=== PATIENT | female | born 1945 | race Caucasian/White ===

== ENCOUNTER 2016-11-12 12:31 | Emergency (ER) | payer OTHER ==
[~2016-11-12] VITALS: Ht 160 cm; Wt 126.5 kg
[~2016-11-12 12:31] MED LIST: AMIODARONE HCL200 MG PO; BENICAR20 MG PO; CARDIZEM CD240 MG PO; CARDIZEM120 MG PO; CELEBREX200 MG PO; CORDARONE200 MG PO; COUMADIN,JANTOVE2 MG PO; COUMADIN2 MG PO; COZAAR50 MG PO; Cardizem CD,Cartia X PO; Cordarone, Pacerone PO; Coumadin Daily Dose PO; Coumadin,Jantoven PO; Cozaar PO; DILTIAZEM 24HR240 MG PO; DOCUSATE SODIU100 MG PO; FERROUS SULFAT324 M1 PO; FLUOXETINE HCL10 MG PO; FUROSEMIDE20 MG PO; GLUCOPHAGE1000 M1 PO; GLUCOPHAGE1000 MG PO; Glucophage PO; HYDROCHLOROTHIA25 MG PO; HYDROCHLOROTHIA50 MG PO; HYDROCODON-ACE1 EAC7 PO; Hydrodiuril,Oretic,E PO; IMODIUM MS REL1 EACH PO; KEFLEX500 MG PO; LASIX20 MG PO; LOPRESSOR100 M1 PO; LOPRESSOR25 MG PO; LOSARTAN POTASS50 MG PO; LOVENOX40 MG/0.4 SC; METOPROLOL PO; PERCOCET 5/31 TABLET PO; PRAVACHOL40 M1 PO; PRAVACHOL40 MG PO; PRAVASTATIN; PROZAC10 M1 PO; PROZAC20 MG PO; PROzac PO; Percocet 5/325,Endoc PO; Pravachol PO; TAZTIA XT180 M1 PO; TOPROL XL100 MG PO; TYLENOL WITH C1 EACH PO; Toprol XL PO; Tylenol Extra Streng PO; VANCOMYCIN HCL125 MG PO; WARFARIN SODIUM2 MG PO
[2016-11-12 13:06] LABS: EOSINOPHIL (%) 1.6 % (0-5); EOSINOPHIL COUNT 0.2 K/uL (0-0.3); HEMATOCRIT 38.1 % (36.0-46.0); IMMATURE GRANULOCYTE (%) 0.5 % (0.0-0.7); IMMATURE GRANULOCYTE COUNT 0.5 K/uL; LYMPHOCYTE COUNT 1.6 K/uL (1.0-2.8); MCH 27.1 PG (29.0-34.0); MCHC 31.8 G/DL (30.0-36.0); MCV 85.2 FL (83-99); MEAN PLAT.VOLUME 9.1 uM^3 (9.5-12.4); MONOCYTE (%) 7.9 % (3-12); MONOCYTE COUNT 0.8 K/uL (0-0.8); NEUTROPHIL (%) 73.4 % (45-76); NEUTROPHIL COUNT 7.1 K/uL (1.8-6.4); PLATELET COUNT 312 K/uL (156-360); RBC DIS.WIDTH-CV 14.8 % (11.8-14.6); RBC DIS.WIDTH-SD 45.1 % (39-53); RED BLOOD COUNT 4.47 M/uL (3.80-5.20); WHITE BLOOD COUNT 9.6 K/uL (4.1-10.2)
[2016-11-12 13:19] LABS: PTT 52.8 (25-32)
[2016-11-12 13:20] LABS: CHLORIDE 103 mEq/L (99-109); POTASSIUM 5.5 mEq/L (3.7-5.4); SODIUM 141 mEq/L (136-147)
[2016-11-12 13:21] LABS: GLUCOSE 120 mg/dL (70-99)
[2016-11-12 13:23] LABS: ANION GAP 10 MEQ/L (2-14)
[2016-11-12 13:25] LABS: GFR ESTIMATE (CALCULATED) > 59 mL/min/
[2016-11-12 13:26] LABS: UREA NITROGEN (BUN) 13 mg/dL (9-23)
[2016-11-12 13:27] LABS: PROTHROMBIN TIME 64.4 (9.2-11.2)
[2016-11-12 13:29] LABS: TROP-I INTERPRETATION NEGATIVE; TROPONIN-I < 0.01 ng/mL (0.0-0.30)
[2016-11-12 14:13] VITALS: BP 153/82
== END 2016-11-12 14:14 | disposition home or self-care (01) ==
LOC: EME 12:31
PROVIDERS: Emergency Medicine
DX: I48.91 Unspecified atrial fibrillation (principal); E11.9 Type 2 diabetes mellitus without complications; E78.5 Hyperlipidemia, unspecified; Z86.000 Personal history of in-situ neoplasm of breast; Z79.01 Long term (current) use of anticoagulants; Z96.643 Presence of artificial hip joint, bilateral; Z91.040 Latex allergy status
CPT/HCPCS: 71010; 80048; 84484; 85025; 85610; 85730; 93005; 99281; 99284

== ENCOUNTER 2017-02-14 11:38 | Emergency (ER) | payer OTHER ==
[~2017-02-14] VITALS: Ht 160 cm; Wt 117.1 kg
[2017-02-14 12:14] LABS: EOSINOPHIL (%) 1.4 % (0-5); EOSINOPHIL COUNT 0.1 K/uL (0-0.3); HEMATOCRIT 39.9 % (36.0-46.0); IMMATURE GRANULOCYTE (%) 0.7 % (0.0-0.7); IMMATURE GRANULOCYTE COUNT 0.1 K/uL; LYMPHOCYTE COUNT 1.5 K/uL (1.0-2.8); MCHC 30.3 G/DL (30.0-36.0); MCV 85.8 FL (83-99); MEAN PLAT.VOLUME 9.4 uM^3 (9.5-12.4); MONOCYTE COUNT 0.7 K/uL (0-0.8); NEUTROPHIL (%) 67.7 % (45-76); PLATELET COUNT 330 K/uL (156-360); RBC DIS.WIDTH-CV 14.6 % (11.8-14.6); RBC DIS.WIDTH-SD 45.6 % (39-53); RED BLOOD COUNT 4.65 M/uL (3.80-5.20); WHITE BLOOD COUNT 7.4 K/uL (4.1-10.2)
[2017-02-14] MEDS ORDERED: AMLODIPINE BESYL5 MG PO (12:17)
[2017-02-14 12:39] LABS: TROP-I INTERPRETATION NEGATIVE; TROPONIN-I 0.01 ng/mL (0.0-0.30)
[2017-02-14 12:48] LABS: INTER. NORMALIZED RATIO 2.7; PROTHROMBIN TIME 28.1 (9.2-11.2)
[2017-02-14 12:54] LABS: CHLORIDE 101 mEq/L (99-109); POTASSIUM 3.8 mEq/L (3.7-5.4); SODIUM 140 mEq/L (136-147)
[2017-02-14 12:56] LABS: GLUCOSE 129 mg/dL (70-99)
[2017-02-14 12:57] LABS: ANION GAP 12 MEQ/L (2-14)
[2017-02-14 13:00] LABS: GFR ESTIMATE (CALCULATED) 58 mL/min/; UREA NITROGEN (BUN) 18 mg/dL (9-23)
[2017-02-14 14:27] VITALS: BP 131/73
== END 2017-02-14 14:37 | disposition home or self-care (01) ==
LOC: EME 11:38
PROVIDERS: Emergency Medicine
DX: I48.0 Paroxysmal atrial fibrillation (principal); R00.2 Palpitations; E11.9 Type 2 diabetes mellitus without complications; Z79.84 Long term (current) use of oral hypoglycemic drugs; Z79.01 Long term (current) use of anticoagulants; Z96.641 Presence of right artificial hip joint; Z96.642 Presence of left artificial hip joint; Z85.3 Personal history of malignant neoplasm of breast; E89.0 Postprocedural hypothyroidism; Z91.040 Latex allergy status; Z91.048 Other nonmedicinal substance allergy status; I10 Essential (primary) hypertension
CPT/HCPCS: 80048; 84484; 85025; 85610; 93005; 99281; 99285

== ENCOUNTER 2017-07-14 09:01 | Day surgery (SDC) | payer OTHER ==
[~2017-07-14] VITALS: Ht 160 cm; Wt 115.0 kg
[~2017-07-14 09:01] MED LIST changes: +AMLODIPINE BESYL5 MG PO; +COUMADIN4 MG PO; +METOPROLOL SUCC25 MG PO; +METOPROLOL SUCC50 MG PO; +VALSARTAN320 MG PO
[2017-07-14 09:45] LABS: POINT-OF-CARE METER ID UU13113696
[2017-07-14 10:45] LABS: POINT-OF-CARE METER ID UU13113819
== END 2017-07-14 11:54 | disposition home or self-care (01) ==
LOC: CATH 09:01
PROVIDERS: Internal Medicine Cardiovascular Disease
PROC: 5A2204Z Restoration of Cardiac Rhythm, Single (ICD-10-PCS; principal; 2017-07-14)
DX: I48.0 Paroxysmal atrial fibrillation (principal); I10 Essential (primary) hypertension; E11.65 Type 2 diabetes mellitus with hyperglycemia; E78.2 Mixed hyperlipidemia; E03.9 Hypothyroidism, unspecified; E66.9 Obesity, unspecified; Z68.42 Body mass index [BMI] 45.0-49.9, adult; Z82.49 Family history of ischemic heart disease and other diseases of the circulatory system; Z85.3 Personal history of malignant neoplasm of breast; Z79.01 Long term (current) use of anticoagulants; Z79.84 Long term (current) use of oral hypoglycemic drugs
CPT/HCPCS: 82948; 93005; J0330

== ENCOUNTER 2018-01-05 20:23 | Inpatient (IN) | payer OTHER ==
[~2018-01-05] VITALS: Ht 160 cm; Wt 115.8 kg
[2018-01-05 20:55] LABS: BASOPHIL (%) 0.3 % (0-1); EOSINOPHIL (%) 0.6 % (0-5); EOSINOPHIL COUNT 0.1 K/uL (0-0.3); HEMATOCRIT 35.3 % (36.0-46.0); HEMOGLOBIN 11.2 G/DL (11.9-15.5); IMMATURE GRANULOCYTE (%) 0.5 % (0.0-0.7); LYMPHOCYTE (%) 14.1 % (15-42); LYMPHOCYTE COUNT 1.4 K/uL (1.0-2.8); MCH 27.3 PG (29.0-34.0); MCHC 31.7 G/DL (30.0-36.0); MCV 85.9 FL (83-99); MONOCYTE (%) 8.4 % (3-12); MONOCYTE COUNT 0.9 K/uL (0-0.8); NEUTROPHIL (%) 76.1 % (45-76); NEUTROPHIL COUNT 7.8 K/uL (1.8-6.4); PLATELET COUNT 308 K/uL (156-360); RBC DIS.WIDTH-CV 14.9 % (11.8-14.6); RBC DIS.WIDTH-SD 46.9 % (39-53); RED BLOOD COUNT 4.11 M/uL (3.80-5.20); WHITE BLOOD COUNT 10.2 K/uL (4.1-10.2)
[2018-01-05 21:24] LABS: CHLORIDE 100 mEq/L (99-109); POTASSIUM 3.8 mEq/L (3.7-5.4); SODIUM 140 mEq/L (136-147)
[2018-01-05 21:25] LABS: GLUCOSE 138 mg/dL (70-99)
[2018-01-05 21:29] LABS: CREATININE 1.1 mg/dL (0.6-1.3); GFR ESTIMATE (CALCULATED) 52 mL/min/
[2018-01-05 21:30] LABS: UREA NITROGEN (BUN) 30 mg/dL (9-23)
[2018-01-05] MEDS ORDERED: PRADAXA150 MG PO (23:07)
[2018-01-06 01:39] VITALS: BP 147/65
[2018-01-06 04:45] VITALS: BP 150/67
[2018-01-06 09:00] VITALS: BP 145/67
[2018-01-06 11:50] VITALS: BP 159/70
[2018-01-06 17:26] VITALS: BP 137/60
[2018-01-06 19:22] VITALS: BP 119/59
[2018-01-07 00:10] VITALS: BP 135/62
[2018-01-07 06:59] LABS: BASOPHIL (%) 0.4 % (0-1); BASOPHIL COUNT 0.1 K/uL (0-0.1); EOSINOPHIL (%) 0.7 % (0-5); EOSINOPHIL COUNT 0.1 K/uL (0-0.3); HEMATOCRIT 34.3 % (36.0-46.0); HEMOGLOBIN 10.6 G/DL (11.9-15.5); IMMATURE GRANULOCYTE (%) 0.3 % (0.0-0.7); LYMPHOCYTE (%) 6.4 % (15-42); LYMPHOCYTE COUNT 0.8 K/uL (1.0-2.8); MCH 26.8 PG (29.0-34.0); MCHC 30.9 G/DL (30.0-36.0); MCV 86.6 FL (83-99); MONOCYTE (%) 7.1 % (3-12); MONOCYTE COUNT 0.8 K/uL (0-0.8); NEUTROPHIL (%) 85.1 % (45-76); PLATELET COUNT 291 K/uL (156-360); RBC DIS.WIDTH-CV 15.1 % (11.8-14.6); RED BLOOD COUNT 3.96 M/uL (3.80-5.20); WHITE BLOOD COUNT 11.8 K/uL (4.1-10.2)
[2018-01-07 07:28] LABS: CHLORIDE 102 MEQ/L (99-109); CREATININE 0.8 MG/DL (0.6-1.3); GFR ESTIMATE (CALCULATED) > 59 mL/min/; GLUCOSE 161 mg/dL (70-99); MAGNESIUM 1.9 mg/dl (1.3-2.7); SODIUM 139 MEQ/L (136-147); UREA NITROGEN (BUN) 18 mg/dL (9-23)
[2018-01-07 07:56] VITALS: BP 141/64
[2018-01-07 17:15] VITALS: BP 136/67
[2018-01-07 19:15] VITALS: BP 117/57
[2018-01-07 23:55] VITALS: BP 129/62
[2018-01-08 08:33] VITALS: BP 155/76
[2018-01-08 11:59] VITALS: BP 163/57
[2018-01-08 16:15] VITALS: BP 157/67
[2018-01-08 19:36] VITALS: BP 114/56
[2018-01-09 00:36] VITALS: BP 131/61
[2018-01-09 07:52] VITALS: BP 149/70
[2018-01-09 09:34] LABS: HEMATOCRIT 35.5 % (36.0-46.0); HEMOGLOBIN 10.9 G/DL (11.9-15.5); MCHC 30.7 G/DL (30.0-36.0); MCV 87.9 FL (83-99); PLATELET COUNT 322 K/uL (156-360); RBC DIS.WIDTH-CV 15.2 % (11.8-14.6); RBC DIS.WIDTH-SD 48.8 % (39-53); RED BLOOD COUNT 4.04 M/uL (3.80-5.20); WHITE BLOOD COUNT 9.6 K/uL (4.1-10.2)
[2018-01-09 10:07] LABS: CHLORIDE 102 MEQ/L (99-109); CREATININE 0.8 MG/DL (0.6-1.3); GFR ESTIMATE (CALCULATED) > 59 mL/min/; GLUCOSE 166 mg/dL (70-99); SODIUM 140 MEQ/L (136-147); UREA NITROGEN (BUN) 14 mg/dL (9-23)
[2018-01-09 12:02] VITALS: BP 147/75
[2018-01-09 15:58] VITALS: BP 129/60
[2018-01-09 19:05] VITALS: BP 136/62
[2018-01-10 00:34] VITALS: BP 125/65
[2018-01-10 05:38] LABS: BASOPHIL (%) 0.6 % (0-1); BASOPHIL COUNT 0.1 K/uL (0-0.1); EOSINOPHIL (%) 2.3 % (0-5); EOSINOPHIL COUNT 0.2 K/uL (0-0.3); HEMATOCRIT 33.5 % (36.0-46.0); HEMOGLOBIN 10.4 G/DL (11.9-15.5); IMMATURE GRANULOCYTE (%) 0.5 % (0.0-0.7); LYMPHOCYTE (%) 14.7 % (15-42); LYMPHOCYTE COUNT 1.3 K/uL (1.0-2.8); MONOCYTE (%) 9.5 % (3-12); MONOCYTE COUNT 0.8 K/uL (0-0.8); NEUTROPHIL (%) 72.4 % (45-76); NEUTROPHIL COUNT 6.3 K/uL (1.8-6.4); PLATELET COUNT 305 K/uL (156-360); RBC DIS.WIDTH-CV 15.2 % (11.8-14.6); RED BLOOD COUNT 3.85 M/uL (3.80-5.20); WHITE BLOOD COUNT 8.6 K/uL (4.1-10.2)
[2018-01-10 05:56] LABS: CHLORIDE 103 MEQ/L (99-109); CREATININE 0.8 MG/DL (0.6-1.3); GFR ESTIMATE (CALCULATED) > 59 mL/min/; GLUCOSE 131 mg/dL (70-99); POTASSIUM 4.1 MEQ/L (3.7-5.4); SODIUM 140 MEQ/L (136-147); UREA NITROGEN (BUN) 14 mg/dL (9-23)
[2018-01-10 08:02] VITALS: BP 131/98
[2018-01-10] MEDS ORDERED: KEFLEX500 MG PO (08:55)
[2018-01-10] MEDS ORDERED: BACTRIM,SEPT1 TABLET PO (08:55)
== END 2018-01-10 12:30 | disposition home health service (06) | DRG 603 ==
LOC: EME 20:23 → EDOF 01-06 00:08 → ENRESERV 01-06 00:09 → 5WEST 01-06 01:31
PROVIDERS: Emergency Medicine; Hospitalist
DX: L03.115 Cellulitis of right lower limb (principal); M86.9 Osteomyelitis, unspecified; Z68.42 Body mass index [BMI] 45.0-49.9, adult; E78.00 Pure hypercholesterolemia, unspecified; Z60.2 Problems related to living alone; E11.40 Type 2 diabetes mellitus with diabetic neuropathy, unspecified; E11.610 Type 2 diabetes mellitus with diabetic neuropathic arthropathy; I10 Essential (primary) hypertension; I48.2 Chronic atrial fibrillation; M89.771 Major osseous defect, right ankle and foot; Z74.09 Other reduced mobility; E66.9 Obesity, unspecified; Z96.651 Presence of right artificial knee joint; Z96.1 Presence of intraocular lens; Z96.643 Presence of artificial hip joint, bilateral; Z86.14 Personal history of Methicillin resistant Staphylococcus aureus infection; Z74.01 Bed confinement status; Z79.01 Long term (current) use of anticoagulants; Z79.84 Long term (current) use of oral hypoglycemic drugs; Z85.3 Personal history of malignant neoplasm of breast; Z90.710 Acquired absence of both cervix and uterus; Z98.41 Cataract extraction status, right eye; Z91.040 Latex allergy status; Z91.048 Other nonmedicinal substance allergy status; Z72.3 Lack of physical exercise; Z80.1 Family history of malignant neoplasm of trachea, bronchus and lung; Z80.8 Family history of malignant neoplasm of other organs or systems; Z82.3 Family history of stroke
CPT/HCPCS: 73610; 73630; 73720; 80048; 80202; 82948; 83605; 83735; 85025; 85027; 85652; 86140; 87040; 87641; 93971; 99281; 99285; G0378; G8978 GP CI; G8979 GP CH; J0690; J0692; J1815; J2543; J3370; J7030; J7050

== ENCOUNTER 2018-05-04 07:14 | Inpatient (IN) | payer OTHER ==
[~2018-05-04] VITALS: Ht 160 cm; Wt 120.3 kg
[~2018-05-04 07:14] MED LIST changes: +BACTRIM,SEPT1 TABLET PO; +GLUCOPHAGE500 MG PO; +PRADAXA150 MG PO
[2018-05-04 07:56] LABS: HEMATOCRIT 33.9 % (36.0-46.0); HEMOGLOBIN 10.7 G/DL (11.9-15.5); MCHC 31.6 G/DL (30.0-36.0); MCV 85.4 FL (83-99); PLATELET COUNT 263 K/uL (156-360); RBC DIS.WIDTH-SD 46.8 % (39-53); RED BLOOD COUNT 3.97 M/uL (3.80-5.20)
[2018-05-04 08:05] LABS: D-DIMER ELISA < 150.00 ng/mLDDU (<230)
[2018-05-04 08:06] LABS: PTT 45.1 SEC (25-37)
[2018-05-04 08:07] LABS: ALBUMIN 3.7 g/dL (3.2-4.8); CHLORIDE 101 mEq/L (99-109); POTASSIUM 3.7 mEq/L (3.7-5.4); SODIUM 139 mEq/L (136-147)
[2018-05-04 08:09] LABS: GLUCOSE 216 mg/dL (70-99)
[2018-05-04 08:10] LABS: TOTAL PROTEIN 6.5 g/dL (6.4-8.3)
[2018-05-04 08:11] LABS: TOTAL BILIRUBIN 0.7 mg/dL (0.0-1.0)
[2018-05-04 08:13] LABS: ALKALINE PHOSPHATASE 100 IU/L (3-129); GFR ESTIMATE (CALCULATED) 58 mL/min/
[2018-05-04 08:14] LABS: UREA NITROGEN (BUN) 28 mg/dL (9-23)
[2018-05-04 08:15] LABS: AST (GOT) 39 IU/L (2-34); INTER. NORMALIZED RATIO 1.3
[2018-05-04 08:16] LABS: ALT (GPT) 31 IU/L (3-49)
[2018-05-04 08:17] LABS: TROP-I INTERPRETATION NEGATIVE; TROPONIN-I 0.02 ng/mL (0.0-0.30)
[2018-05-04 12:03] VITALS: BP 133/75
[2018-05-04 16:16] VITALS: BP 141/64
[2018-05-05] VITALS: BP 124/87
[2018-05-05 06:36] LABS: BASOPHIL (%) 0.1 % (0-1); EOSINOPHIL (%) 0 % (0-5); HEMATOCRIT 34.4 % (36.0-46.0); HEMOGLOBIN 10.6 G/DL (11.9-15.5); IMMATURE GRANULOCYTE (%) 0.8 % (0.0-0.7); LYMPHOCYTE (%) 7.9 % (15-42); LYMPHOCYTE COUNT 0.9 K/uL (1.0-2.8); MCH 26.2 PG (29.0-34.0); MCHC 30.8 G/DL (30.0-36.0); MCV 85.1 FL (83-99); MONOCYTE (%) 6.2 % (3-12); MONOCYTE COUNT 0.7 K/uL (0-0.8); NEUTROPHIL COUNT 9.3 K/uL (1.8-6.4); PLATELET COUNT 279 K/uL (156-360); RBC DIS.WIDTH-CV 14.9 % (11.8-14.6); RBC DIS.WIDTH-SD 46.9 % (39-53); RED BLOOD COUNT 4.04 M/uL (3.80-5.20); WHITE BLOOD COUNT 10.9 K/uL (4.1-10.2)
[2018-05-05 07:00] LABS: CHLORIDE 102 MEQ/L (99-109); CREATININE 0.7 MG/DL (0.6-1.3); GFR ESTIMATE (CALCULATED) > 59 mL/min/; GLUCOSE 175 mg/dL (70-99); SODIUM 138 MEQ/L (136-147); UREA NITROGEN (BUN) 20 mg/dL (9-23)
[2018-05-05 07:14] VITALS: BP 118/56
[2018-05-05 10:58] VITALS: BP 142/63
[2018-05-05 14:58] VITALS: BP 121/71
[2018-05-06] VITALS: BP 148/67
[2018-05-06 07:09] VITALS: BP 158/70
[2018-05-06 15:04] VITALS: BP 130/70
[2018-05-07] VITALS (7 sets, daily range): BP systolic 120–183; BP diastolic 66–81
[2018-05-07 06:28] LABS: HEMATOCRIT 32.1 % (36.0-46.0); HEMOGLOBIN 10.1 G/DL (11.9-15.5); MCH 26.8 PG (29.0-34.0); MCHC 31.5 G/DL (30.0-36.0); MCV 85.1 FL (83-99); PLATELET COUNT 311 K/uL (156-360); RBC DIS.WIDTH-CV 15.3 % (11.8-14.6); RBC DIS.WIDTH-SD 46.7 % (39-53); RED BLOOD COUNT 3.77 M/uL (3.80-5.20); WHITE BLOOD COUNT 12.6 K/uL (4.1-10.2)
[2018-05-07 06:55] LABS: CHLORIDE 100 MEQ/L (99-109); CREATININE 0.9 MG/DL (0.6-1.3); GFR ESTIMATE (CALCULATED) > 59 mL/min/; GLUCOSE 197 mg/dL (70-99); POTASSIUM 3.6 MEQ/L (3.7-5.4); SODIUM 140 MEQ/L (136-147); UREA NITROGEN (BUN) 22 mg/dL (9-23)
[2018-05-08 06:11] LABS: HEMATOCRIT 32.3 % (36.0-46.0); MCH 26.2 PG (29.0-34.0); MCV 84.8 FL (83-99); PLATELET COUNT 309 K/uL (156-360); RBC DIS.WIDTH-CV 15.1 % (11.8-14.6); RBC DIS.WIDTH-SD 46.4 % (39-53); RED BLOOD COUNT 3.81 M/uL (3.80-5.20); WHITE BLOOD COUNT 12.5 K/uL (4.1-10.2)
[2018-05-08 06:53] LABS: CHLORIDE 97 MEQ/L (99-109); CREATININE 0.9 MG/DL (0.6-1.3); GFR ESTIMATE (CALCULATED) > 59 mL/min/; GLUCOSE 170 mg/dL (70-99); MAGNESIUM 2.4 mg/dl (1.3-2.7); POTASSIUM 3.1 MEQ/L (3.7-5.4); SODIUM 140 MEQ/L (136-147); UREA NITROGEN (BUN) 22 mg/dL (9-23)
[2018-05-08 08:02] VITALS: BP 176/74
[2018-05-08 15:26] VITALS: BP 166/73
[2018-05-09 00:04] VITALS: BP 179/84
[2018-05-09 06:02] LABS: BASOPHIL (%) 0.1 % (0-1); EOSINOPHIL (%) 0.2 % (0-5); IMMATURE GRANULOCYTE (%) 0.8 % (0.0-0.7); LYMPHOCYTE (%) 8.3 % (15-42); LYMPHOCYTE COUNT 0.9 K/uL (1.0-2.8); MCH 26.5 PG (29.0-34.0); MCHC 31.3 G/DL (30.0-36.0); MCV 84.9 FL (83-99); MONOCYTE COUNT 0.9 K/uL (0-0.8); NEUTROPHIL (%) 82.6 % (45-76); NEUTROPHIL COUNT 9.1 K/uL (1.8-6.4); PLATELET COUNT 291 K/uL (156-360); RBC DIS.WIDTH-SD 46.1 % (39-53); RED BLOOD COUNT 3.77 M/uL (3.80-5.20)
[2018-05-09 06:46] LABS: CHLORIDE 98 MEQ/L (99-109); CREATININE 0.8 MG/DL (0.6-1.3); GFR ESTIMATE (CALCULATED) > 59 mL/min/; GLUCOSE 153 mg/dL (70-99); POTASSIUM 2.9 MEQ/L (3.7-5.4); SODIUM 142 MEQ/L (136-147); UREA NITROGEN (BUN) 19 mg/dL (9-23)
[2018-05-09 07:04] VITALS: BP 149/67
[2018-05-09 11:56] LABS: HEMOGLOBIN A1c (GLYCOHEMOGLOB) 7.3 % (Below 5.7)
[2018-05-09 15:08] VITALS: BP 156/68
[2018-05-09 20:40] VITALS: BP 144/65
[2018-05-10] VITALS (7 sets, daily range): BP systolic 117–190; BP diastolic 57–88
[2018-05-10 06:46] LABS: BASOPHIL (%) 0.1 % (0-1); EOSINOPHIL (%) 1.2 % (0-5); EOSINOPHIL COUNT 0.1 K/uL (0-0.3); HEMATOCRIT 34.4 % (36.0-46.0); HEMOGLOBIN 10.8 G/DL (11.9-15.5); LYMPHOCYTE (%) 10.2 % (15-42); LYMPHOCYTE COUNT 1.2 K/uL (1.0-2.8); MCH 26.7 PG (29.0-34.0); MCHC 31.4 G/DL (30.0-36.0); MCV 85.1 FL (83-99); MONOCYTE (%) 7.7 % (3-12); MONOCYTE COUNT 0.9 K/uL (0-0.8); NEUTROPHIL (%) 79.8 % (45-76); NEUTROPHIL COUNT 9.6 K/uL (1.8-6.4); PLATELET COUNT 360 K/uL (156-360); RBC DIS.WIDTH-CV 15.1 % (11.8-14.6); RBC DIS.WIDTH-SD 46.9 % (39-53); RED BLOOD COUNT 4.04 M/uL (3.80-5.20)
[2018-05-10 07:30] LABS: CHLORIDE 97 MEQ/L (99-109); CREATININE 0.9 MG/DL (0.6-1.3); GFR ESTIMATE (CALCULATED) > 59 mL/min/; GLUCOSE 145 mg/dL (70-99); SODIUM 140 MEQ/L (136-147); UREA NITROGEN (BUN) 18 mg/dL (9-23)
[2018-05-10 07:33] LABS: POTASSIUM 3.6 MEQ/L (3.7-5.4)
[2018-05-11 06:05] LABS: HEMATOCRIT 32.4 % (36.0-46.0); HEMOGLOBIN 10.1 G/DL (11.9-15.5); MCH 26.7 PG (29.0-34.0); MCHC 31.2 G/DL (30.0-36.0); MCV 85.7 FL (83-99); PLATELET COUNT 314 K/uL (156-360); RBC DIS.WIDTH-CV 15.3 % (11.8-14.6); RBC DIS.WIDTH-SD 47.5 % (39-53); RED BLOOD COUNT 3.78 M/uL (3.80-5.20); WHITE BLOOD COUNT 9.9 K/uL (4.1-10.2)
[2018-05-11 06:24] LABS: CHLORIDE 99 MEQ/L (99-109); GFR ESTIMATE (CALCULATED) 58 mL/min/; GLUCOSE 144 mg/dL (70-99); SODIUM 142 MEQ/L (136-147); UREA NITROGEN (BUN) 17 mg/dL (9-23)
[2018-05-11 07:31] VITALS: BP 148/64
[2018-05-11] MEDS ORDERED: LASIX20 MG PO (13:02)
[2018-05-11] MEDS ORDERED: AMLODIPINE BESY10 MG PO (13:02)
[2018-05-11] MEDS ORDERED: AUGMENTIN875 MG PO (13:02)
== END 2018-05-11 15:43 | disposition home health service (06) | DRG 194 ==
LOC: EME 07:14 → EDOF 10:20 → 5SOUTH 10:20 → ENRESERV 10:24 → 5SOUTH 11:15
PROVIDERS: Internal Medicine; Nurse Practitioner Adult Health; Physician Assistant; Physician Assistant Medical
DX: J18.9 Pneumonia, unspecified organism (principal); R09.02 Hypoxemia; J81.1 Chronic pulmonary edema; I48.2 Chronic atrial fibrillation; E87.2 Acidosis; I27.20 Pulmonary hypertension, unspecified; E11.610 Type 2 diabetes mellitus with diabetic neuropathic arthropathy; E87.70 Fluid overload, unspecified; I08.1 Rheumatic disorders of both mitral and tricuspid valves; E87.6 Hypokalemia; I10 Essential (primary) hypertension; E89.0 Postprocedural hypothyroidism; E78.5 Hyperlipidemia, unspecified; I25.10 Atherosclerotic heart disease of native coronary artery without angina pectoris; J00 Acute nasopharyngitis [common cold]; Z85.3 Personal history of malignant neoplasm of breast; Z90.710 Acquired absence of both cervix and uterus; Z96.643 Presence of artificial hip joint, bilateral; Z79.84 Long term (current) use of oral hypoglycemic drugs
CPT/HCPCS: 71045; 71046; 80048; 80053; 82948; 83036; 83605; 83735; 83880; 84484; 85025; 85027; 85379; 85610; 85730; 87040; 87070; 87205; 87449; 87493; 93005; 93306; 93971; 94640; 94799; 97530 GO; 99281; 99285; J0295; J0456; J0696; J1815; J1940; J2543; J7030; J7050; J7512